=== PATIENT | male | born 1995 | race Caucasian/White ===

== ENCOUNTER 2022-08-04 08:15 | Outpatient (CLI) | payer BC | END 2022-08-04 08:16 | disposition home or self-care (01) | LOC: CSHLAB 08:15 | PROVIDERS: ATTEND Otolaryngology Otolaryngic Allergy | DX: Z20.822 Contact with and (suspected) exposure to COVID-19 (principal) | CPT/HCPCS: 87811 ==

== ENCOUNTER 2022-08-09 07:05 | Day surgery (SDC) | payer BC ==
[2022-08-05 14:06] VITALS: BMI 24.3
[2022-08-09] MEDS ORDERED: Oxymetazoline HCl 0.05% ( 15 ML ) ONE ×2 (09:53→11:17)
[2022-08-09] MEDS ORDERED: EPINEPHrine 1 MG/ML AMP ONE (11:17)
[2022-08-09] MEDS ORDERED: Triple Antibiotic Oint 1 GM Packet ONE (11:18)
[2022-08-09] MEDS ORDERED: Lidocaine 1% (PF) 30 ML VIAL ONE (11:18)
[2022-08-09] MEDS ORDERED: Mupirocin 2% Ointment 22 GM Tube ONE (11:23)
[2022-08-09] MEDS ORDERED: Fentanyl 250 MCG/5 ML VIAL ONE (11:25)
[2022-08-09] MEDS ORDERED: PROPOFOL 20 ML ONE ×2 (11:25→11:46)
[2022-08-09] MEDS ORDERED: Ondansetron PF 4 MG/2 ML Vial ONE (11:25)
[2022-08-09] MEDS ORDERED: Dexamethasone 20 MG/5 ML VIAL ONE (11:25)
[2022-08-09] MEDS ORDERED: Midazolam HCl 2 mg/2 ml Vial ONE (11:25)
[2022-08-09] MEDS ORDERED: Rocuronium Bromide 10 MG/ML (10ML VIAL) ONE (11:25)
[2022-08-09] MEDS ORDERED: Lidocaine 1% PF 5 ML VIAL ONE (11:25)
[2022-08-09] MEDS ORDERED: CEFAZOLIN 1 GM VIAL ONE (11:31)
== END 2022-08-09 15:25 | disposition home or self-care (01) ==
LOC: CSHSDC 07:05
PROVIDERS: ATTEND Otolaryngology Plastic Surgery within the Head & Neck
PROC: 09TL0ZZ Resection of Nasal Turbinate, Open Approach (ICD-10-PCS; principal; 2022-08-09)
PROC: 09BM0ZZ Excision of Nasal Septum, Open Approach (ICD-10-PCS; principal; 2022-08-09)
PROC: 0CTPXZZ Resection of Tonsils, External Approach (ICD-10-PCS; principal; 2022-08-09)
DX: J34.2 Deviated nasal septum (principal); J34.3 Hypertrophy of nasal turbinates; J34.89 Other specified disorders of nose and nasal sinuses; J35.1 Hypertrophy of tonsils; R19.6 Halitosis; Z79.899 Other long term (current) drug therapy; Z20.822 Contact with and (suspected) exposure to COVID-19
CPT/HCPCS: 88304; J0171; J0690; J1100; J2001; J2250; J2405; J2704; J3010